=== PATIENT | female | born 1985 | race Caucasian/White ===

== ENCOUNTER 2016-10-01 12:05 | Emergency (ER) | payer SELFPAY ==
[~2016-10-01] VITALS: Ht 157.5 cm; Wt 113.4 kg
--- NOTE | 2016-10-01 12:15 | NUR ---
PT AMBULATORY TO ER BED 10. C/O PAINFUL MOUTH SORES W/ FEVER THAT STARTED UPON WAKING UP. 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 VSS. AWAITING MD DE LA CRUZ.
--- NOTE | 2016-10-01 12:33 | NUR ---
PHYLICIA BARCLAY AT BEDSIDE FOR EVAL.
--- NOTE | 2016-10-01 12:42 | NUR ---
IV LINE STARTED BLOOD DRAWN AND SENT TO LAB.
[2016-10-01] MEDS ORDERED: LIDOCAINE VISCOUS 2% UD 15 ML UDC ONE (12:46)
[2016-10-01] MEDS ORDERED: MORPHINE SULFATE INJ 4 MG/ML DISP.SYRIN ONE (12:46)
[2016-10-01] MEDS ORDERED: ONDANSETRON HCL/PF 4 MG/2 ML VIAL ONE (12:46)
[2016-10-01 12:47] LABS: BASOPHILS # (AUTO) 0.1 /CMM (0.0-0.2); BASOPHILS % (AUTO) 0.6 % (0.0-2.0); EOSINOPHILS # (AUTO) 0.5 /CMM (0.0-0.7); EOSINOPHILS % (AUTO) 5.5 % (0.0-6.0); HEMATOCRIT 40 % (33-45); HEMOGLOBIN 13.3 g/dL (11.5-14.8); LYMPHOCYTES # (AUTO) 1.9 /CMM (0.8-4.8); LYMPHOCYTES % (AUTO) 22.3 % (20.0-44.0); MEAN CORPUSCULAR HEMOGLOBIN 28 PG (26.0-33.0); MEAN CORPUSCULAR HGB CONC 33 g/dl (31.0-36.0); MEAN CORPUSCULAR VOLUME 84 fL (82-100); MONOCYTES # (AUTO) 0.4 /CMM (0.1-1.30); NEUTROPHILS # (AUTO) 5.7 /CMM (1.8-8.9); NEUTROPHILS % (AUTO) 66.6 % (43.0-81.0); PLATELET COUNT (AUTO) 347 /CMM (150-450); RDW COEFFICIENT OF VARIATION 12.6 (11.5-15.0); RED BLOOD CELL COUNT(AUTO) 4.83 MIL/uL (4.0-5.2); WHITE BLOOD COUNT (AUTO) 8.6 K/uL (4.3-11.0)
[2016-10-01 12:59] LABS: CALCIUM, SERUM 9.2 mg/dL (8.5-10.1); CREATININE 0.9 mg/dL (0.6-1.3); POTASSIUM 4.3 mmol/L (3.5-5.1)
[2016-10-01] MEDS ORDERED: ONDANSETRON HCL/PF 4 MG/2 ML VIAL IVP ONE (13:00)
[2016-10-01] MEDS ORDERED: IV NS 0.9% 1,000 ML BAG IV ONE (13:00)
[2016-10-01] MEDS ORDERED: MORPHINE SULFATE INJ 2 MG/ML DISP.SYRIN IV ONE (13:00)
[2016-10-01] MEDS ORDERED: LIDOCAINE VISCOUS 2% UD 15 ML UDC MM ONE (13:00)
[2016-10-01 13:10] LABS: ALBUMIN 4.2 g/dL (3.4-5.0); BILIRUBIN,DIRECT 0.1 mg/dL (0.0-0.2); BILIRUBIN,TOTAL 0.5 mg/dL (0.2-1.0); TOTAL PROTEIN, SERUM 8.2 g/dL (6.4-8.2)
[2016-10-01] MEDS ORDERED: KETOROLAC TROMETHAMINE INJ 30 MG/ML VIAL IV ONE (14:00)
[2016-10-01] MEDS ORDERED: KETOROLAC TROMETHAMINE INJ 30 MG/ML VIAL ONE (14:06)
[2016-10-01] MEDS ORDERED: LORAZEPAM 1 MG TABLET ONE (14:07)
--- NOTE | 2016-10-01 14:11 | NUR ---
ATIVEN 2MG PO GIVEN PER MARSII PA VERBAL ORDER.
--- NOTE | 2016-10-01 14:19 | NUR ---
Patient discharged to home in stable condition. Written and verbal after care instructions given. Patient verbalizes understanding of instruction.IV removed. Catheter intact and site benign. Pressure and 4x4 applied to site. No bleeding noted.
[2016-10-01 14:23] VITALS: BP 132/94
[2016-10-01] MEDS ORDERED: LORAZEPAM 1 MG TABLET PO ONE (14:30)
== END 2016-10-01 14:23 | disposition home or self-care (01) ==
LOC: ER 12:07
DX: L03.115 Cellulitis of right lower limb (principal); B08.4 Enteroviral vesicular stomatitis with exanthem; J45.909 Unspecified asthma, uncomplicated; M19.90 Unspecified osteoarthritis, unspecified site
CPT/HCPCS: 36415; 80048; 80076; 85025; 87070; 87804; 87880; 96361; 96374; 96375; 99284; A4606; J1885; J2270; J2405; J7030 ×2; Z7610; 86403-TC; 87400

== ENCOUNTER 2018-06-19 23:44 | Emergency (ER) | payer SELFPAY ==
[~2018-06-19] VITALS: Ht 152.4 cm; Wt 99.8 kg
[2018-06-19 23:53] VITALS: BP 134/89
[2018-06-20] MEDS ORDERED: AMOX/CLAVULANATE 875 MG TABLET PO ONE (01:00)
[2018-06-20] MEDS ORDERED: LIDOCAINE 1%-EPI 1:100,000 50 ML VIAL IJ ONE (01:00)
[2018-06-20] MEDS ORDERED: LIDOCAINE 1%-EPI 1:100,000 20 ML VIAL ONE (01:14)
[2018-06-20] MEDS ORDERED: HYDROCODONE/APAP 5/325MG 1 EACH TABLET ONE (01:14)
[2018-06-20] MEDS ORDERED: AMOX/CLAVULANATE 875 MG TABLET ONE (01:14)
[2018-06-20] MEDS ORDERED: KETOROLAC TROMETHAMINE INJ 60 MG/2 ML VIAL IM ONE ×2 (01:14→01:30)
[2018-06-20] MEDS ORDERED: HYDROCODONE/APAP 5/325MG 1 EACH TABLET PO ONE (01:30)
--- NOTE | 2018-06-20 01:36 | NUR ---
NEEDLE ASPIRATION IN PROGRESS BY DR CHEN
--- NOTE | 2018-06-20 01:58 | NUR ---
NEOSPORIN AND BANDAID APPLIED TO WOUND ON L AXILLA
--- NOTE | 2018-06-20 02:03 | NUR ---
Patient discharged to home in stable condition. Written and verbal after care instructions given. Patient verbalizes understanding of instruction AND RX. PT REQUESTED THAT ALL MEDICATIONS ADMINISTERED IN ER BE WRITTEN ON THE DC PAPERWORK AND SIGNED BY FOR HER PRICK STITCHER. PT AMBULATED OUT WITH A STEADY GAIT. VSS.
== END 2018-06-20 02:12 | disposition home or self-care (01) ==
LOC: ER 23:44
DX: L04.2 Acute lymphadenitis of upper limb (principal); L73.2 Hidradenitis suppurativa; J45.909 Unspecified asthma, uncomplicated; M19.90 Unspecified osteoarthritis, unspecified site; M79.7 Fibromyalgia; Z88.1 Allergy status to other antibiotic agents
CPT/HCPCS: 10060; 84703; 87070; 96372; 99283; A6402; J1885; J3490 ×2; 87186-TC

== ENCOUNTER 2018-07-08 23:55 | Emergency (ER) | payer SELFPAY ==
[~2018-07-08] VITALS: Ht 152.4 cm; Wt 104.3 kg
[2018-07-09 00:41] VITALS: BP 147/100
--- NOTE | 2018-07-09 01:10 | NUR ---
Female aircraft mechanic accompanied female patient for Dr Floyd.
[2018-07-09] MEDS ORDERED: LIDOCAINE/PRILOCAINE (5GM) 5 GM TUBE TP ONE (01:25)
[2018-07-09] MEDS ORDERED: oxyCODONE/APAP (5/325 MG) 1 UDTAB TABLET PO ONE ×2 (01:30)
[2018-07-09] MEDS ORDERED: LIDOCAINE/PRILOCAINE 1 EA KIT TP ONE (01:30)
[2018-07-09] MEDS: LIDOCAINE 1%-EPI 1:200,000 SDV 10 ML VIAL IJ ONE ×2 (01:36→01:46)
[2018-07-09] MEDS ORDERED: LIDOCAINE 1%-EPI 1:100,000 20 ML VIAL ONE (01:38)
[2018-07-09] MEDS ORDERED: oxyCODONE/APAP (5/325 MG) 1 UDTAB TABLET ONE (01:39)
--- NOTE | 2018-07-09 01:47 | NUR ---
URINE SPECIMEN OBTAINED AND SENT TO THE LAB.
--- NOTE | 2018-07-09 02:22 | NUR ---
Female tallow maker accompanied female patient with Dr. Floyd for procedure. Wound culture obtained from Madeline victor and sent to the lab.
[2018-07-09] MEDS ORDERED: NEOMY SULF/BACITRAC ZN/POLY 15 GM TUBE TP SCH (02:30)
[2018-07-09] MEDS ORDERED: MORPHINE SULFATE INJ 4 MG/ML DISP.SYRIN ONE (02:31)
[2018-07-09] MEDS ORDERED: DOXYCYCLINE HYCLATE (100 MG) 100 MG TABLET ONE (03:00)
[2018-07-09] MEDS ORDERED: MORPHINE SULFATE INJ 2 MG/ML DISP.SYRIN IM ONE (03:00)
[2018-07-09] MEDS ORDERED: DOXYCYCLINE HYCLATE (100 MG) 100 MG TABLET PO ONE (03:00)
== END 2018-07-09 03:52 | disposition home or self-care (01) ==
LOC: ER 23:58
DX: L02.215 Cutaneous abscess of perineum (principal); L73.2 Hidradenitis suppurativa; R21 Rash and other nonspecific skin eruption; M79.7 Fibromyalgia; J45.909 Unspecified asthma, uncomplicated; M19.90 Unspecified osteoarthritis, unspecified site; F17.200 Nicotine dependence, unspecified, uncomplicated; Z88.1 Allergy status to other antibiotic agents; Z60.2 Problems related to living alone
CPT/HCPCS: 56405; 84703; 87070; 87077; 87186; 96372; 99284; A6402; J2270; J3490 ×2

== ENCOUNTER 2018-12-11 00:18 | Emergency (ER) | payer SELFPAY ==
[~2018-12-11] VITALS: Ht 152.4 cm; Wt 108.9 kg
[2018-12-11 00:18] VITALS: BP 150/94
[2018-12-11] MEDS ORDERED: DEXAMETHASONE SOD PHOSPHATE 10 MG/ML VIAL IM ONE (00:30)
[2018-12-11] MEDS ORDERED: diphenhydrAMINE HCL 50 MG/ML VIAL IM ONE (00:30)
[2018-12-11] MEDS ORDERED: DEXAMETHASONE SOD PHOSPHATE 10 MG/ML VIAL ONE (00:40)
[2018-12-11] MEDS ORDERED: diphenhydrAMINE HCL 50 MG/ML VIAL ONE (00:40)
== END 2018-12-11 01:30 | disposition home or self-care (01) ==
LOC: ER 00:23
DX: R22.0 Localized swelling, mass and lump, head (principal); T36.8X5A Adverse effect of other systemic antibiotics, initial encounter; M79.7 Fibromyalgia; J45.909 Unspecified asthma, uncomplicated; F17.200 Nicotine dependence, unspecified, uncomplicated; Z88.1 Allergy status to other antibiotic agents; Z88.2 Allergy status to sulfonamides; Z88.6 Allergy status to analgesic agent; Z60.2 Problems related to living alone; Y92.89 Other specified places as the place of occurrence of the external cause
CPT/HCPCS: 96372 ×2; 99283; J1100; J1200

== ENCOUNTER 2019-01-07 17:02 | Emergency (ER) | payer SELFPAY ==
[~2019-01-07] VITALS: Ht 152.4 cm; Wt 108.9 kg
[2019-01-07 17:15] VITALS: BP 140/115
[2019-01-07] MEDS ORDERED: TRAMADOL HCL 50 MG TABLET PO ONE (17:30)
[2019-01-07] MEDS ORDERED: TRAMADOL HCL 50 MG TABLET ONE (17:35)
== END 2019-01-07 18:20 | disposition home or self-care (01) ==
LOC: ER 17:03
DX: S93.692A Other sprain of left foot, initial encounter (principal); M79.7 Fibromyalgia; J45.909 Unspecified asthma, uncomplicated; M19.90 Unspecified osteoarthritis, unspecified site; F17.200 Nicotine dependence, unspecified, uncomplicated; Z88.1 Allergy status to other antibiotic agents; Z88.2 Allergy status to sulfonamides; Z60.2 Problems related to living alone; X50.1XXA Overexertion from prolonged static or awkward postures, initial encounter; Y93.01 Activity, walking, marching and hiking; Y92.89 Other specified places as the place of occurrence of the external cause; Y99.8 Other external cause status
CPT/HCPCS: 73630-TC

== ENCOUNTER 2019-01-12 16:51 | Emergency (ER) | payer SELFPAY ==
[~2019-01-12] VITALS: Ht 152.4 cm; Wt 116.1 kg
--- NOTE | 2019-01-12 17:50 | NUR ---
PT CAME INTO THE ED C/O "coughing [id number] now. Body aches/greenish phlegm". PT COMPLAINING OF GENERALIZED BODY PAIN. PT AAOX4, VSS, BREATHING EVEN AND UNLABORED ON ROOM AIR. PT CONNECTED TO THE MONITOR
[2019-01-12] MEDS ORDERED: ALBUTEROL FS 2.5 MG/3 ML VIAL.NEB NEB ONE (18:00)
[2019-01-12] MEDS ORDERED: ACETAMINOPHEN ES 500 MG TABLET PO ONE (18:00)
[2019-01-12] MEDS ORDERED: IPRATROPIUM NEB FS 0.5 MG/2.5 ML AMPUL.NEB NEB ONE (18:00)
[2019-01-12] MEDS ORDERED: IBUPROFEN 600 MG TABLET PO ONE ×2 (18:00→18:11)
[2019-01-12] MEDS ORDERED: IPRATROPIUM NEB FS 0.5 MG/2.5 ML AMPUL.NEB ONE (18:09)
[2019-01-12] MEDS ORDERED: ALBUTEROL FS 2.5 MG/3 ML VIAL.NEB ONE (18:09)
[2019-01-12] MEDS ORDERED: ACETAMINOPHEN ES 500 MG TABLET ONE (18:11)
[2019-01-12 18:32] LABS: APPEARANCE,URINE Slightly Cloudy (CLEAR); BILIRUBIN,URINE Negative (NEGATIVE); BLOOD, URINE Negative Ery/uL (NEGATIVE); COLOR,URINE Yellow (YELLOW); KETONES,URINE Negative (NEGATIVE); LEUKOCYTE ESTERASE ,URINE Trace (NEGATIVE); NITRITE, URINE Negative (NEGATIVE); PROTEIN,URINE Negative (NEGATIVE); UGLUCOSE Negative (NEGATIVE); UROBILINOGEN,URINE 0.2 EU/dL (0.2)
[2019-01-12 18:56] LABS: BACTERIA,URINE Many /HPF (None Seen); RBC,URINE 0-2 /HPF (0-2); SQUAMOUS EPITHELIAL CELL,UR Moderate /HPF (None Seen)
--- NOTE | 2019-01-12 18:57 | NUR ---
XRAY AT BEDSIDE
--- NOTE | 2019-01-12 19:21 | NUR ---
Report given to Babs Mccullough
[2019-01-12] MEDS ORDERED: MORPHINE SULFATE INJ 4 MG/ML DISP.SYRIN ONE (19:46)
[2019-01-12] MEDS ORDERED: NITROFURANTOIN/NITROFURAN MAC 100 MG CAPSULE ONE (19:46)
[2019-01-12] MEDS ORDERED: ONDANSETRON 4 MG TAB.RAPDIS ONE (19:57)
[2019-01-12] MEDS ORDERED: ONDANSETRON 4 MG TAB.RAPDIS SL ONE (20:00)
[2019-01-12] MEDS ORDERED: MORPHINE SULFATE INJ 10 MG/ML DISP.SYRIN IM ONE (20:00)
[2019-01-12] MEDS ORDERED: NITROFURANTOIN/NITROFURAN MAC 100 MG CAPSULE PO ONE (20:00)
[2019-01-12 20:25] VITALS: BP 133/80
--- NOTE | 2019-01-12 20:25 | NUR ---
Patient discharged to home in stable condition. Written and verbal after care instructions given. Patient verbalizes understanding of instruction.
== END 2019-01-12 20:25 | disposition home or self-care (01) ==
LOC: ER 16:53
DX: J06.9 Acute upper respiratory infection, unspecified (principal); N39.0 Urinary tract infection, site not specified; M79.7 Fibromyalgia; J45.909 Unspecified asthma, uncomplicated; M19.90 Unspecified osteoarthritis, unspecified site; F17.200 Nicotine dependence, unspecified, uncomplicated; Z88.1 Allergy status to other antibiotic agents; Z88.2 Allergy status to sulfonamides; Z60.2 Problems related to living alone
CPT/HCPCS: 71045; 81001; 84703; 87086; 94640; 96372; 99284; J2270; Q0162; 81000-TC

== ENCOUNTER 2019-08-28 19:22 | Emergency (ER) | payer SELFPAY ==
[~2019-08-28] VITALS: Ht 152.4 cm; Wt 106.1 kg
[2019-08-28 19:25] VITALS: BP 123/81
[2019-08-28] MEDS ORDERED: FAMOTIDINE (20 MG) 20 MG TABLET ONE (19:48)
[2019-08-28] MEDS ORDERED: predniSONE 20 MG TABLET ONE (19:49)
[2019-08-28] MEDS ORDERED: predniSONE 10 MG TABLET PO ONE (20:00)
[2019-08-28] MEDS ORDERED: FAMOTIDINE (20 MG) 20 MG TABLET PO ONE (20:00)
== END 2019-08-28 20:32 | disposition home or self-care (01) ==
LOC: ER 19:22
DX: L29.9 Pruritus, unspecified (principal); M79.7 Fibromyalgia; J45.909 Unspecified asthma, uncomplicated; M19.90 Unspecified osteoarthritis, unspecified site; F17.200 Nicotine dependence, unspecified, uncomplicated; Z88.1 Allergy status to other antibiotic agents; Z88.2 Allergy status to sulfonamides; Z88.8 Allergy status to other drugs, medicaments and biological substances
CPT/HCPCS: 99283; J7512

== ENCOUNTER 2022-02-02 00:52 | Emergency (ER) | payer SELFPAY ==
[~2022-02-02] VITALS: Ht 152.4 cm; Wt 108.9 kg
[2022-02-02] MEDS ORDERED: ONDANSETRON HCL/PF 4 MG/2 ML VIAL ONE (02:47)
[2022-02-02] MEDS ORDERED: KETOROLAC TROMETHAMINE INJ 30 MG/ML VIAL ONE ×2 (02:47→06:33)
--- NOTE | 2022-02-02 02:57 | NUR ---
IV CANNULA G20 INSERTED ON RIGHT AC. BLOOD DRAWN AND SENT TO LAB
[2022-02-02 02:58] LABS: BASOPHILS % (AUTO) 0.4 % (0.0-2.0); HEMATOCRIT 36 % (33-45); HEMOGLOBIN 11.9 g/dL (11.5-14.8); LYMPHOCYTES # (AUTO) 2.6 K/uL (0.8-4.8); LYMPHOCYTES % (AUTO) 29.5 % (20.0-44.0); MEAN CORPUSCULAR HGB CONC 33 g/dl (31.0-36.0); MEAN CORPUSCULAR VOLUME 78 fL (82-100); MONOCYTES # (AUTO) 0.5 K/uL (0.1-1.30); MONOCYTES % (AUTO) 5.6 % (2.0-12.0); NEUTROPHILS # (AUTO) 5.2 K/uL (1.8-8.9); NEUTROPHILS % (AUTO) 60.5 % (43.0-81.0); PLATELET COUNT (AUTO) 301 K/uL (150-450); RED BLOOD CELL COUNT(AUTO) 4.64 MIL/uL (4.0-5.2); WHITE BLOOD COUNT (AUTO) 8.7 K/uL (4.3-11.0)
--- NOTE | 2022-02-02 02:58 | NUR ---
URINE SPECIMEN SENT TO LAB
[2022-02-02] MEDS ORDERED: IV NS 0.9% 1,000 ML BAG IV ONE (03:00)
[2022-02-02] MEDS ORDERED: ONDANSETRON HCL/PF 4 MG/2 ML VIAL IVP ONE (03:00)
[2022-02-02] MEDS ORDERED: KETOROLAC TROMETHAMINE INJ 30 MG/ML VIAL IV ONE ×2 (03:00→06:00)
[2022-02-02 03:28] LABS: CREATININE 0.8 mg/dL (0.6-1.3); POTASSIUM 3.7 mmol/L (3.5-5.1)
[2022-02-02 03:33] LABS: ALBUMIN 3.8 g/dL (3.4-5.0); BILIRUBIN,DIRECT 0.1 mg/dL (0.0-0.2); BILIRUBIN,TOTAL 0.3 mg/dL (0.2-1.0); TOTAL PROTEIN, SERUM 7.7 g/dL (6.4-8.2)
[2022-02-02] MEDS ORDERED: MORPHINE SULFATE INJ 4 MG/ML DISP.SYRIN ONE (03:49)
[2022-02-02] MEDS ORDERED: MORPHINE SULFATE INJ 2 MG/ML DISP.SYRIN IV ONE (04:00)
--- NOTE | 2022-02-02 04:15 | NUR ---
REPORT GIVEN TO BERNICE BOYCE
--- NOTE | 2022-02-02 04:33 | NUR ---
BROUGHT TO CT DEPT
[2022-02-02 04:42] LABS: BILIRUBIN,URINE NEGATIVE (NEGATIVE); COLOR,URINE YELLOW (YELLOW); LEUKOCYTE ESTERASE ,URINE NEGATIVE (NEGATIVE); NITRITE, URINE NEGATIVE (NEGATIVE); PROTEIN,URINE NEGATIVE (NEGATIVE); UGLUCOSE NEGATIVE (NEGATIVE); UROBILINOGEN,URINE 0.2 EU/dL (0.2)
--- NOTE | 2022-02-02 04:45 | NUR ---
PT RETURNED FROM CT
--- NOTE | 2022-02-02 04:56 | NUR ---
Aundrea vargas in ED - 02/02/22 at 0543 by CAITY TRANSFERRED PT TO [facility]IA [facility]
[2022-02-02] MEDS ORDERED: ONDA4TAB5 PO (06:26)
[2022-02-02] MEDS ORDERED: IBUP-1958 PO (06:26)
[2022-02-02 07:09] VITALS: BP 148/110
== END 2022-02-02 07:09 | disposition home or self-care (01) ==
LOC: ER 00:54
DX: R10.9 Unspecified abdominal pain (principal); M79.7 Fibromyalgia; J45.909 Unspecified asthma, uncomplicated; M19.90 Unspecified osteoarthritis, unspecified site; F17.200 Nicotine dependence, unspecified, uncomplicated; Z88.8 Allergy status to other drugs, medicaments and biological substances; Z79.899 Other long term (current) drug therapy
CPT/HCPCS: 99284; 74176; 96374; 96375; 96376; 85025; 80048; 83690; 80076; 84703; 81003; 36415; J2270; J1885 ×2; J2405; J7030; A6403

== ENCOUNTER 2022-05-25 11:32 | Emergency (ER) | payer MEDICAID ==
[~2022-05-25] VITALS: Ht 152.4 cm; Wt 120.2 kg
[~2022-05-25 11:32] MED LIST: IBUP-1958 PO; ONDA4TAB5 PO
--- NOTE | 2022-05-25 11:40 | NUR ---
BIBS C/O DYSURIA X 2 WEEKS, NOTED BLOOD IN URINE RECENTLY. AMBULATORY, PLACED IN BED, AAOX4.
--- NOTE | 2022-05-25 12:08 | NUR ---
DR FRANCES AT BEDSIDE
[2022-05-25] MEDS ORDERED: CEPH500T PO (12:10)
--- NOTE | 2022-05-25 12:13 | NUR ---
URINE SAMPLE SENT TO LAB.
[2022-05-25 12:39] LABS: BILIRUBIN,URINE NEGATIVE (NEGATIVE); COLOR,URINE YELLOW (YELLOW); LEUKOCYTE ESTERASE ,URINE TRACE (NEGATIVE); NITRITE, URINE NEGATIVE (NEGATIVE); PROTEIN,URINE NEGATIVE (NEGATIVE); UGLUCOSE NEGATIVE (NEGATIVE); UROBILINOGEN,URINE 0.2 EU/dL (0.2)
--- NOTE | 2022-05-25 12:47 | NUR ---
Female ladies underwear operator accompanied female patient for (RT UPPER THIGH ABCESS ).
--- NOTE | 2022-05-25 12:48 | NUR ---
DR. FRANCES ASSISSTED AT BED SIDE
[2022-05-25] MEDS ORDERED: HYDR-4209 PO ×2 (12:49→13:48)
[2022-05-25] MEDS ORDERED: KETO10TA2 PO (12:49)
[2022-05-25 12:51] LABS: BACTERIA,URINE None seen /HPF (None Seen); RBC,URINE NONE SEEN /HPF (0-2); SQUAMOUS EPITHELIAL CELL,UR Many /HPF (None Seen)
[2022-05-25] MEDS ORDERED: MORPHINE SULFATE INJ 4 MG/ML DISP.SYRIN ONE (12:59)
[2022-05-25] MEDS ORDERED: MORPHINE SULFATE INJ 2 MG/ML DISP.SYRIN IM ONE (13:00)
--- NOTE | 2022-05-25 13:10 | NUR ---
Patient discharged to home in stable condition. Written and verbal after care instructions given. Patient verbalizes understanding of instruction.
[2022-05-25 13:14] VITALS: BP 105/81
== END 2022-05-25 13:10 | disposition home or self-care (01) ==
LOC: ER 11:39
DX: L73.9 Follicular disorder, unspecified (principal); N39.0 Urinary tract infection, site not specified; L73.2 Hidradenitis suppurativa; J45.909 Unspecified asthma, uncomplicated; F17.200 Nicotine dependence, unspecified, uncomplicated; Z79.899 Other long term (current) drug therapy; Z88.1 Allergy status to other antibiotic agents; Z88.2 Allergy status to sulfonamides
CPT/HCPCS: 99283; 96372; 84703; 81001; J2270

== ENCOUNTER 2022-07-14 19:14 | Emergency (ER) | payer SELFPAY ==
[~2022-07-14] VITALS: Ht 165.1 cm; Wt 113.4 kg
[~2022-07-14 19:14] MED LIST changes: +CEPH500T PO; +HYDR-4209 PO; +KETO10TA2 PO
--- NOTE | 2022-07-14 19:35 | NUR ---
BIBSELF FROM HOME C/O SOB & R BACK PAIN "FEELS LIKE SOMEONE IS SITTING ON MY CHEST" HX OF ASTHMA. PATIENT IS AAOX4. ABLE TO MAKE NEEDS KNOWN. PLACED COMFORTABLY IN BED. RA SATS 100%. VITALS CHECKED.
--- NOTE | 2022-07-14 19:45 | NUR ---
DR SHAVER AT BEDSIDE
[2022-07-14] MEDS ORDERED: ALBUTEROL FS 2.5 MG/3 ML VIAL.NEB CONTNEB ONE (20:00)
[2022-07-14] MEDS ORDERED: HYDROCODONE/APAP 5/325MG TABLET PO ONE (20:00)
[2022-07-14] MEDS ORDERED: IPRATROPIUM NEB FS 0.5 MG/2.5 ML AMPUL.NEB NEB ONE (20:00)
[2022-07-14] MEDS ORDERED: KETOROLAC TROMETHAMINE INJ 60 MG/2 ML VIAL IM ONE ×2 (20:00→20:35)
--- NOTE | 2022-07-14 20:00 | NUR ---
UTILITY GELATIN MAKER AT BEDSIDE
[2022-07-14] MEDS ORDERED: ALBUTEROL FS 2.5 MG/3 ML VIAL.NEB ONE (20:16)
[2022-07-14] MEDS ORDERED: IPRATROPIUM NEB FS 0.5 MG/2.5 ML AMPUL.NEB ONE (20:16)
[2022-07-14] MEDS ORDERED: HYDROCODONE/APAP 5/325MG TABLET ONE (20:35)
--- NOTE | 2022-07-14 20:55 | NUR ---
Patient discharged to home in stable condition. Patient refused Written and verbal after care instructions given.
[2022-07-14 23:06] VITALS: BP 122/82
== END 2022-07-14 23:08 | disposition home or self-care (01) ==
LOC: ER 19:15
DX: J45.909 Unspecified asthma, uncomplicated (principal); M79.7 Fibromyalgia; M19.90 Unspecified osteoarthritis, unspecified site; F17.200 Nicotine dependence, unspecified, uncomplicated; Z88.2 Allergy status to sulfonamides; Z88.8 Allergy status to other drugs, medicaments and biological substances; Z79.899 Other long term (current) drug therapy
CPT/HCPCS: 99283; 71045; 96372; 93005; 94640; J1885

== ENCOUNTER 2022-10-08 02:38 | Emergency (ER) | payer SELFPAY ==
[~2022-10-08] VITALS: Ht 152.4 cm; Wt 113.4 kg
[2022-10-08] MEDS ORDERED: HYDROCODONE/APAP 5/325MG TABLET PO ONE (03:30)
[2022-10-08] MEDS ORDERED: HYDROCODONE/APAP 5/325MG TABLET ONE (03:44)
[2022-10-08] MEDS ORDERED: IBUP-1957 PO (05:21)
[2022-10-08 06:05] VITALS: BP 158/112; TEMP 98; O2SAT 100
== END 2022-10-08 06:06 | disposition home or self-care (01) ==
LOC: ER 02:39
DX: S83.8X2A Sprain of other specified parts of left knee, initial encounter (principal); S83.8X1A Sprain of other specified parts of right knee, initial encounter; S39.012A Strain of muscle, fascia and tendon of lower back, initial encounter; S09.8XXA Other specified injuries of head, initial encounter; J45.909 Unspecified asthma, uncomplicated; Z79.899 Other long term (current) drug therapy; Z88.1 Allergy status to other antibiotic agents; Z88.2 Allergy status to sulfonamides; V03.99XA Pedestrian with other conveyance injured in collision with car, pick-up truck or van, unspecified whether traffic or nontraffic accident, initial encounter; Y93.89 Activity, other specified; Y92.89 Other specified places as the place of occurrence of the external cause; Y99.8 Other external cause status
CPT/HCPCS: 70450-TC; 72131-TC; 73564-TC